=== PATIENT | female | born 1990 | race Hispanic/Latino ===

== ENCOUNTER 2021-09-10 20:32 | Inpatient (IN) | payer OTHER ==
[~2021-09-10] VITALS: Ht 160 cm; Wt 82.6 kg
[2021-09-10 21:10] LABS: APPEARANCE,URINE Cloudy (CLEAR); BILIRUBIN,URINE Negative (NEGATIVE); COLOR,URINE Yellow (YELLOW); GLUCOSE, URINE (UA) TRACE mg/dL (NEGATIVE); KETONES,URINE Negative (NEGATIVE); LEUKOCYTE ESTERASE ,URINE Large (NEGATIVE); NITRATE,URINE Negative (NEGATIVE); OCCULT BLOOD,URINE Negative (NEGATIVE); PROTEIN,URINE Trace mg/dL (NEGATIVE)
[2021-09-10] MEDS ORDERED: AMPICILLIN 2GM+NS 100ML 100 ML IV ONE (21:11)
[2021-09-10 21:18] LABS: AMPHET/METH SCREEN,URINE NEGATIVE (NEGATIVE); BARBITURATE SCREEN, URINE NEGATIVE (NEGATIVE); BENZODIAZEPINES SCREEN,URINE NEGATIVE (NEGATIVE); CANNABINOID SCREEN,URINE NEGATIVE (NEGATIVE); COCAINE SCREEN,URINE NEGATIVE (NEGATIVE); OPIATE SCREEN,URINE NEGATIVE (NEGATIVE); PHENCYCLIDINE SCREEN,URINE NEGATIVE (NEGATIVE); RBC,URINE 0-1 /HPF (0-1)
[2021-09-10 21:19] LABS: BACTERIA,URINE Few /HPF (None Seen); SQUAMOUS EPITHELIAL CELL,UR Moderate /HPF (0-2)
[2021-09-10 21:20] LABS: AMORPHOUS SEDIMENT,UR Rare /LPF (None Seen)
[2021-09-10 21:30] LABS: HEMATOCRIT 39.7 % (36-48); MEAN CORPUSCULAR HEMOGLOBIN 32.6 pg (27.0-33.0); MEAN CORPUSCULAR VOLUME 98.8 fL (79-99); RED BLOOD CELL COUNT(AUTO) 4.02 MIL/uL (4.00-5.50); RED CELL DISTRIBUTION WIDTH 12.6 % (11.0-15.5); WHITE BLOOD COUNT (AUTO) 9.5 K/uL (4.8-10.8)
[2021-09-10] MEDS ORDERED: OXYTOCIN-LR 20 UNITS/1000 ML 1,000 ML IV SCH (21:30)
[2021-09-10] MEDS ORDERED: AMPICILLIN 2GM+NS 100ML 100 ML IV SCH (21:30)
[2021-09-10] MEDS ORDERED: AMPICILLIN 1GM+NS 50ML 50 ML IV SCH (21:30)
[2021-09-10] MEDS ORDERED: LACTATED RINGERS 1000ML 1,000 ML IV PRN ×2 (21:30)
[2021-09-10] MEDS ORDERED: CEFAZOLIN SODIUM 1 GM VIAL ONE (22:45)
[2021-09-10] MEDS ORDERED: FENTANYL CITRATE PF 50 MCG/1 ML 2ML VIAL ONE ×2 (22:47→23:42)
[2021-09-10] MEDS ORDERED: LIDOCAINE 2%-EPI 1:200,000 20 ML VIAL IJ ONE (23:05)
[2021-09-10] MEDS ORDERED: CITRIC ACID/SODIUM CITRATE 30 ML UDCUP ONE (23:11)
[2021-09-10] MEDS ORDERED: PHENYLEPHRINE HCL 10 MG/ML 1ML VIAL IV ONE (23:19)
[2021-09-10] MEDS ORDERED: ONDANSETRON 4MG INJ ONE (23:30)
[2021-09-10] MEDS ORDERED: MORPHINE PF 100MG/10ML AMP IV ONE (23:41)
[2021-09-10] MEDS: METHYLERGONOVINE MALEATE 0.2 MG/1 ML ML ONE (23:51)
[2021-09-11] VITALS (7 sets, daily range): BP systolic 103–120; BP diastolic 49–64
[2021-09-11] MEDS ORDERED: METHYLERGONOVINE MALEATE 0.2 MG/1 ML ML IM ONE
[2021-09-11] MEDS ORDERED: EPHEDRINE SULFATE 50 MG/ML AMPULE ONE (00:45)
[2021-09-11] MEDS ORDERED: EPHEDRINE-NS PF 50MG/5ML SYRINGE IV ONE (01:00)
[2021-09-11] MEDS ORDERED: LORATADINE/PSEUDOEPHED 5/120 MG 1 EACH TAB.SR.12H PO PRN (01:30)
[2021-09-11] MEDS ORDERED: MEPERIDINE-PF 25 MG/ML SYG IVP ONE (01:30)
[2021-09-11] MEDS: METHYLERGONOVINE MALEATE 0.2 MG/1 ML ML ONE (01:31)
[2021-09-11] MEDS ORDERED: DiphenhydrAMINE HCL 50 MG/ML VIAL ONE (04:11)
[2021-09-11] MEDS ORDERED: HYDROCODONE/ACETAMINOPHEN 5/325 MG TAB PO PRN ×2 (05:30→09:30)
[2021-09-11] MEDS ORDERED: DIPH,PERTUSS(ACELL),TET VAC/PF 0.5 ML VIAL IM SCH (05:30)
[2021-09-11] MEDS ORDERED: LANOLIN 30GM OINTMENT TP PRN ×2 (05:30→09:30)
[2021-09-11] MEDS ORDERED: IBUPROFEN 600 MG TABLET PO PRN ×2 (05:30→09:30)
[2021-09-11] MEDS ORDERED: 0.9%NACL 10ML VIAL IVP PRN (05:30)
[2021-09-11] MEDS ORDERED: ACETAMINOPHEN WITH CODEINE 1 TAB TAB PO PRN ×2 (05:30→09:30)
[2021-09-11] MEDS ORDERED: ACETAMINOPHEN 500 MG TABLET PO PRN ×2 (05:30→09:30)
[2021-09-11] MEDS ORDERED: BISACODYL 10 MG SUPP.RECT RC PRN ×2 (05:30→09:30)
[2021-09-11] MEDS ORDERED: MEASLES/MUMPS/RUBELLA VACCINE, LIVE 0.5 ML/VIAL SQ SCH (05:30)
[2021-09-11 07:02] LABS: HEMATOCRIT 31.5 % (36-48); MEAN CORPUSCULAR HEMOGLOBIN 32.4 pg (27.0-33.0); MEAN CORPUSCULAR HGB CONC 33.3 g/dL (32.0-36.0); MEAN CORPUSCULAR VOLUME 97.2 fL (79-99); RED BLOOD CELL COUNT(AUTO) 3.24 MIL/uL (4.00-5.50); RED CELL DISTRIBUTION WIDTH 12.4 % (11.0-15.5); WHITE BLOOD COUNT (AUTO) 17.3 K/uL (4.8-10.8)
[2021-09-11] MEDS ORDERED: SIMETHICONE 80 MG TAB.CHEW PO PRN (09:30)
[2021-09-11 09:34] LABS: RAPID PLASMA REAGIN NONREACTIVE (NONREACTIVE)
[2021-09-11] MEDS ORDERED: PREN-61 PO (17:00)
[2021-09-11] MEDS: SIMETHICONE 80 MG TAB.CHEW PO PRN ×3 (17:36→20:35)
[2021-09-11] MEDS ORDERED: ONDANSETRON 4MG INJ IVP PRN (20:00)
[2021-09-11] MEDS: DOCUSATE SODIUM 100 MG CAP PO SCH (20:36)
[2021-09-11] MEDS ORDERED: DOCUSATE SODIUM 100 MG CAP PO SCH (21:00)
[2021-09-11] MEDS: IBUPROFEN 800 MG TAB PO SCH (21:03)
[2021-09-12 03:39] VITALS: BP 101/52
[2021-09-12] MEDS: IBUPROFEN 800 MG TAB PO SCH ×2 (05:51→16:13)
[2021-09-12 07:21] VITALS: BP 98/58
[2021-09-12] MEDS: SIMETHICONE 80 MG TAB.CHEW PO PRN ×2 (08:32→16:12)
[2021-09-12] MEDS: DOCUSATE SODIUM 100 MG CAP PO SCH (08:32)
[2021-09-12 11:14] VITALS: BP 92/50
[2021-09-12 16:00] VITALS: BP 113/60
[2021-09-12] MEDS ORDERED: DOCU-116 PO (17:26)
[2021-09-12] MEDS ORDERED: IBUP-2077 PO (17:27)
[2021-09-12] MEDS ORDERED: ACET-2079 PO (17:28)
== END 2021-09-12 19:00 | disposition home or self-care (01) | DRG 788 ==
LOC: EDH 20:32 → LDH 20:33 → OBSVTOIN 20:33 → WSH 09-11 15:19
PROVIDERS: ADMIT Specialist; ATTEND Specialist
PROC: 10D00Z1 Extraction of Products of Conception, Low, Open Approach (ICD-10-PCS; principal; 2021-09-10 23:28)
DX: O75.89 Other specified complications of labor and delivery (principal); Z37.0 Single live birth; Z3A.38 38 weeks gestation of pregnancy
CPT/HCPCS: 36415; 59510; 80305; 81001; 85027; 86592; 86701; 86850; 86900; 86901; 87088; 87340; 87390; 90707; A4344; A4351; G0378; J0290; J0690; J1200; J2210; J2274; J2370; J2405; J2590; J3010; J3490; J7120